=== PATIENT | female | born 1940 | race Caucasian/White ===

== ENCOUNTER 2019-02-22 11:56 | Emergency (ER) | payer MEDICARE, BC ==
[2019-02-22 12:25] VITALS: BP 149/87
--- NOTE | 2019-02-22 12:28 | UC ---
Lower Extremity/Ankle HPI - HPI Summary HPI Summary: 78-year-old female presents with left calf pain. She states she has had some discomfort in the left calf for about one week but now over the past day or so has become more comfortable with some redness and warmth to touch. No fevers or chills. No difficulty breathing. No chest pains or palpitations. Touching the area worsens the symptoms. Rest improves her symptoms. - History of Current Complaint Chief Complaint: UCLowerExtremity Stated Complaint: POSS BLOOD CLOT Time Seen by Provider: 02/22/19 12:13 Hx Obtained From: Patient Pain Intensity: 8 - Allergies/Home Medications Allergies/Adverse Reactions: Allergies Allergy/AdvReac Type Severity Reaction Status Date / Time No Known Allergies Allergy Verified 02/22/19 12:25 Home Medications: Home Medications Hydrochlorothiazide TAB* [Hydrodiuril TAB*] 12.5 mg PO DAILY 02/22/19 [History Confirmed 02/22/19] Lisinopril TAB* [Prinivil TAB*] 40 mg PO DAILY 02/22/19 [History Confirmed 02/22] Pantoprazole TAB * [Protonix TAB*] 40 mg PO DAILY 02/22/19 [History Confirmed ] Vitamin D 3 5,000 units PO DAILY 02/22/19 [History] PMH/Surg Hx/FS Hx/Imm Hx Previously Healthy: Yes Cardiovascular History: Hypertension GI/ History: Gastroesophageal Reflux - Surgical History Surgical History: Yes Surgery Procedure, Year, and Place: hysterectomy, bladder lift, b/l hip replacements- 2016, last was on right side 11/2018; throat stretched - Social History Alcohol Use: Rare Substance Use Type: None Smoking Status (MU): Never Smoked Tobacco Review of Systems All Other Systems Reviewed And Are Negative: Yes Musculoskeletal: Positive: Calf Tenderness Physical Exam Triage Information Reviewed: Yes Appearance: Well-Appearing, No Pain Distress, Well-Nourished Vital Signs: Initial Vital Signs Temp 99.4 F 02/22/19 12:13 Pulse 86 02/22/19 12:13 Resp 18 02/22/19 12:13 BP 149/87 02/22/19 12:13 Pulse Ox 99 02/22/19 12:13 Vital Signs Reviewed: Yes Eye Exam: Normal ENT Exam: Normal Neck exam: Normal Neck: Positive: 1 Respiratory Exam: Normal Cardiovascular Exam: Normal Musculoskeletal Exam: Normal Musculoskeletal: Positive: Other: - left calf tenderness to palpation Neurological Exam: Normal Psychological Exam: Normal Skin Exam: Normal Lower Extremity Course/Dx - Course Course Of Treatment: Patient with superficial thrombophlebitis. No DVT noted. Discussed with patient and daughter to elevate, anti-inflammatories with a meal as well as keep her primary care appointment in 3 days. If symptoms worsen go to emergency room. She denies any chest pain, shortness of breath or palpitations. Patient and daughter are aware and agreeable to plan as well as side effects of medications. She has been taking Avapro once daily I advised to take 3 times a day for the next 3 days and after that go to 2 times per day as she follows up with her primary care doctor. - Differential Dx/Diagnosis Differential Diagnosis/HQI/PQRI: Compartment Syndrome, DVT, Sprain, Strain Provider Diagnosis: Superficial thrombophlebitis of lower extremity Discharge ED - Sign-Out/Discharge Documenting (check all that apply): Patient Departure All imaging exams completed and their final reports reviewed: Yes - Discharge Plan Condition: Good Disposition: HOME Patient Education Materials: Superficial Thrombophlebitis (ED) Referrals: Ellie Little PA [Primary Care Provider] - 3 Days - Billing Disposition and Condition Condition: GOOD Disposition: Home
== END 2019-02-22 13:13 | disposition home or self-care (01) ==
LOC: UCCORT 11:56
DX: I80.252 Phlebitis and thrombophlebitis of left calf muscular vein (principal); I10 Essential (primary) hypertension; Z79.899 Other long term (current) drug therapy
CPT/HCPCS: 99211; G0463